=== PATIENT | male | born 1985 | race Caucasian/White ===

== ENCOUNTER 2020-10-16 22:32 | Emergency (ER) | payer OTHER ==
[2020-10-17] MEDS ORDERED: ROBAXIN750 MG PO (01:24)
[2020-10-17] MEDS ORDERED: MEDROL 4MG DOSEP4 MG PO (01:24)
[2020-10-17] MEDS ORDERED: NORCO 5-325 TA1 EACH PO (01:24)
== END 2020-10-17 01:40 | disposition home or self-care (01) ==
LOC: FER 22:32
DX: M54.40 Lumbago with sciatica, unspecified side (principal); R93.7 Abnormal findings on diagnostic imaging of other parts of musculoskeletal system; M51.26 Other intervertebral disc displacement, lumbar region; M48.061 Spinal stenosis, lumbar region without neurogenic claudication
CPT/HCPCS: 72131; J1885